=== PATIENT | male | born 1965 | race Two or more races ===

== ENCOUNTER 2021-08-18 19:09 | Emergency (ER) | payer SELFPAY ==
--- NOTE | 2021-08-18 19:30 | NUR ---
Patient was called to be triaged but was not present in the waiting room or outside of ER.
--- NOTE | 2021-08-18 19:35 | NUR ---
Patient was called to be traiged but was not present in the waiting room or outside of ER.
--- NOTE | 2021-08-18 20:10 | NUR ---
Patient was called to be traiged but was not present. Patient was not triaged or seen by [facility].
== END 2021-08-18 20:10 | disposition left against medical advice (07) ==
LOC: ER 19:20
DX: Z53.21 Procedure and treatment not carried out due to patient leaving prior to being seen by health care provider (principal)